=== PATIENT | female | born 1985 | race Caucasian/White ===

== ENCOUNTER 2019-01-31 01:23 | Emergency (ER) | payer BC ==
[2019-01-31 01:36] VITALS: TEMP 98.1; O2SAT 99
--- NOTE | 2019-01-31 02:28 | ED.PDOC ---
History of Present Illness - General Chief Complaint: Chemical Exposure/Inhalation Stated Complaint: carbon monoxide detector went off Time Seen by Provider: 01/31/19 02:02 Source: patient, family Exam Limitations: no limitations - History of Present Illness Initial Comments: Pt and her were at home when the CO detector alarmed around midnight. She had a headache prior to the alarm which now is better. A second detector went off 20 min after the first. The home heater is not being used Timing/Duration: unsure Severity: moderate Improving Factors: other - being out of house Worsening Factors: nothing Associated Symptoms: headaches Allergies/Adverse Reactions: Allergies Morphine Allergy (Verified 01/31/19 01:36) Home Medications: Ambulatory Orders Levothyroxine Sodium [Synthroid] 50 mcg PO DAILY 01/31/19 Review of Systems - Review of Systems Constitutional: States: malaise. Denies: chills, fever EENTM: Denies: blurred vision, nose congestion, throat pain Respiratory: Denies: cough, short of breath Cardiology: Denies: chest pain, palpitations Gastrointestinal/Abdominal: Denies: abdominal pain, nausea Genitourinary: States: no symptoms reported Musculoskeletal: States: no symptoms reported Skin: Denies: change in color Neurological: States: headache. Denies: numbness, weakness Endocrine: States: no symptoms reported Hematologic/Lymphatic: States: no symptoms reported Past Medical History (General) - Patient Medical History Hx Thyroid Disease: Yes Hx Diabetes: No - Vaccination History Hx Influenza Vaccination: No - Female History Patient : No Family Medical History - Family History Father Family History: Unknown Physical Exam - Physical Exam General Appearance: Alert, Anxious, Comfortable Eye Exam: bilateral normal Ears, Nose, Throat: hearing grossly normal, normal pharynx Neck: full range of motion, tender midline - has tight paracerv muscles Respiratory: chest non-tender, lungs clear, normal breath sounds Cardiovascular/Chest: normal peripheral pulses, regular rate, rhythm Extremity: normal range of motion, non-tender Neurologic: alert, normal mood/affect, oriented x 3 Skin Exam: normal color, warm/dry Lymphatic: no adenopathy Progress - Progress Progress: 01/31/19 02:34 Unable to get AGB from pt , but 's carboxyhgb was 0.2 %. Unlikely that her's would be significant Departure - Departure Clinical Impression: Carbon monoxide exposure Headache Qualifiers: Headache type: tension-type Headache chronicity pattern: acute headache Intractability: not intractable Qualified Code(s): G44.209 - Tension-type headache, unspecified, not intractable Disposition: Discharge to Home or Self Care Departure Forms: ED Discharge - Pt. Copy, Patient Portal Self Enrollment Home Medications: Ambulatory Orders Levothyroxine Sodium [Synthroid] 50 mcg PO DAILY 01/31/19
[2019-01-31 02:45] VITALS: BP 109/74
== END 2019-01-31 02:46 | disposition home or self-care (01) ==
LOC: ER 01:23
DX: T58.91XA Toxic effect of carbon monoxide from unspecified source, accidental (unintentional), initial encounter (principal); R51 Headache; E07.9 Disorder of thyroid, unspecified; Z79.899 Other long term (current) drug therapy; Z88.5 Allergy status to narcotic agent; Y92.009 Unspecified place in unspecified non-institutional (private) residence as the place of occurrence of the external cause